=== PATIENT | male | born 1955 | race Caucasian/White ===

== ENCOUNTER 2018-05-20 14:39 | Emergency (ER) | payer OTHER ==
[~2018-05-20] VITALS: Ht 185.4 cm; Wt 108.9 kg
[~2018-05-20 14:39] MED LIST: ALBU8HFA2 INH; ALBU90OI; ALBU90OI6 INH; ALBUIS IH; BUDE6HFA INH; Bactrim Ds Tab1 EACH PO; CEPH500 PO; CHOL10002 PO; CLON1 PO; DIPATR PO; DULERA 100 MCG/13 GM; ERGO400 PO; ESOM20 PO; GUAI600T33 PO; HYDACE5325 PO; METF500 PO; Norco 5-325 Ta1 EACH PO; OMEP20ER; OMEP20ER PO; PANT20 PO; PREG50 PO; PROP10 PO; Prednisone20 MG PO; Pyridium200 MG PO; SULTRIDS PO; TIOT18 IH
[2018-05-20] MEDS ORDERED: Bactrim Ds Tab1 EACH PO (16:25)
== END 2018-05-20 16:35 | disposition home or self-care (01) ==
LOC: ER 14:39
DX: L02.214 Cutaneous abscess of groin (principal); L03.314 Cellulitis of groin; J44.9 Chronic obstructive pulmonary disease, unspecified; E11.9 Type 2 diabetes mellitus without complications; F17.200 Nicotine dependence, unspecified, uncomplicated; Z88.1 Allergy status to other antibiotic agents; Z88.8 Allergy status to other drugs, medicaments and biological substances; Z79.899 Other long term (current) drug therapy; Z79.84 Long term (current) use of oral hypoglycemic drugs
CPT/HCPCS: 10061; 99283-25

== ENCOUNTER → 2019-05-06 | Outpatient (CLI) | payer OTHER ==
[~2019-05-06] MED LIST changes: +ALBU3IS INH; -ALBUIS IH; -DULERA 100 MCG/13 GM; +DULERA 200 MCG/13 GM INH; +TAMS.4ER PO; +Zithromax250 MG PO
[2019-05-09 10:29] LABS: Adenovirus F 40/41 Not Detected (NOT DETECT); Campylobacter Sp Not Detected (NOT DETECT); Cryptosporidium Not Detected (NOT DETECT); Cyclospora Cayetanensis Not Detected (NOT DETECT); E. Coli O157 Not Detected (NOT DETECT); Entamoeba Histolytica Not Detected (NOT DETECT); Enteroaggregative E. coli-EAEC Not Detected (NOT DETECT); Enteropathogenic E. coli-EPEC Not Detected (NOT DETECT); Enterotoxigenic E. coli-ETEC Not Detected (NOT DETECT); Giardia Lamblia Not Detected (NOT DETECT); Plesiomonas Shigelloides Not Detected (NOT DETECT); Salmonella Sp Not Detected (NOT DETECT); Shiga Toxin-prod E. coli-STEC Not Detected (NOT DETECT); Shigella/Enteroin E. coli-EIEC Not Detected (NOT DETECT); Vibrio Cholerae Not Detected (NOT DETECT); Vibrio Sp Not Detected (NOT DETECT); Yersinia Enterocolitica Not Detected (NOT DETECT)
[2019-05-09 10:30] LABS: Astrovirus Not Detected (NOT DETECT); Norovirus GI/GII Not Detected (NOT DETECT); Rotavirus A Not Detected (NOT DETECT); Sapovirus Not Detected (NOT DETECT)
== END | disposition home or self-care (01) ==
LOC: LAB 07:32 → LAB SHORT 07:32
PROVIDERS: Internal Medicine Gastroenterology
DX: R19.7 Diarrhea, unspecified (principal)
CPT/HCPCS: 0097U

== ENCOUNTER 2019-05-09 04:44 | Emergency (ER) | payer OTHER ==
[~2019-05-09] VITALS: Ht 185.4 cm; Wt 111.6 kg
[~2019-05-09 04:44] MED LIST changes: -TAMS.4ER PO; -Zithromax250 MG PO
[2019-05-09] MEDS ORDERED: TAMS.4ER PO (05:04)
[2019-05-09 05:13] LABS: BASOPHILS ABSOLUTE AUTO 0.06 K/mm3 (0.00-0.23); BASOPHILS PERCENT AUTO 1 % (0-2); EOSINOPHILS ABSOLUTE AUTO 0.08 K/mm3 (0.00-0.68); EOSINOPHILS PERCENT AUTO 1 % (0-6); Hematocrit 46.6 % (37.0-53.0); Hemoglobin 15.3 g/dL (13.5-17.5); IMMATURE GRAN ABSOLUTE AUTO 0.07 K/mm3 (0.00-0.10); IMMATURE GRAN PERCENT AUTO 1 % (0-1); LYMPHOCYTES ABSOLUTE AUTO 1.42 K/mm3 (0.84-5.20); LYMPHOCYTES PERCENT AUTO 12 % (21-46); MONOCYTES ABSOLUTE AUTO 1.02 K/mm3 (0.16-1.47); MONOCYTES PERCENT AUTO 8 % (4-13); Mean Corpuscular HGB 27.9 pg (26.0-34.0); Mean Corpuscular HGB Conc 32.8 g/dL (31.5-36.5); Mean Corpuscular Volume 85 fL (80-100); Mean Platelet Volume 9.4 fL (9.1-12.4); NEUTROPHILS ABSOLUTE AUTO 9.69 K/mm3 (1.96-9.15); NEUTROPHILS PERCENT AUTO 79 % (41-73); Platelet Count 211 K/mm3 (150-400); RDW Coefficient Variation 13.6 % (11.7-14.2); RDW Standard Deviation 42.3 fL (35.1-46.3); Red Blood Cell Count 5.48 M/mm3 (4.30-5.90); White Blood Cell Count 12.34 K/mm3 (4.00-11.30)
[2019-05-09 05:33] LABS: Alanine Aminotransfer (ALT/SGP 32 U/L (12-78); Albumin, Blood 3.3 g/dL (3.4-5.0); Albumin/Globulin Ratio 0.8 (0.8-1.8); Alk Phos 74 U/L (50-136); Anion Gap 7 mmol/L (6-16); Aspartate Aminotrans (AST/SGOT 21 U/L (12-37); Bilirubin, Total 0.3 mg/dL (0.1-1.0); Blood Urea Nitrogen 12 mg/dL (8-24); Bun/Creatinine Ratio 10.3 (12.0-20.0); CO2, Blood 26 mmol/L (21-32); Chloride, Blood 108 mmol/L (98-108); Creatinine, Blood 1.17 mg/dL (0.60-1.20); Globulin, Blood 4.3 g/dL (2.2-4.0); Glomerular Filtration Rate >60 (60-); Glucose, Blood 128 mg/dL (70-99); Potassium, Blood 3.6 mmol/L (3.5-5.5); Sodium, Blood 141 mmol/L (136-145); Total Protein, Blood 7.6 g/dL (6.4-8.2)
[2019-05-09 05:48] LABS: Influenza A Negative (NEGATIVE); Influenza B Negative (NEGATIVE)
[2019-05-09] MEDS ORDERED: Zithromax250 MG PO (05:55)
== END 2019-05-09 06:18 | disposition home or self-care (01) ==
LOC: ER 04:44
PROVIDERS: Emergency Medicine
DX: J44.0 Chronic obstructive pulmonary disease with (acute) lower respiratory infection (principal); J20.9 Acute bronchitis, unspecified; J44.1 Chronic obstructive pulmonary disease with (acute) exacerbation; E11.9 Type 2 diabetes mellitus without complications; Z88.8 Allergy status to other drugs, medicaments and biological substances; Z88.1 Allergy status to other antibiotic agents; Z79.899 Other long term (current) drug therapy; Z79.84 Long term (current) use of oral hypoglycemic drugs
CPT/HCPCS: 36415; 71046; 80053; 82947; 85025; 87804; 93005; 93010; 94640; 99284-25

== ENCOUNTER 2019-05-09 18:56 | Inpatient (IN) | payer OTHER ==
[~2019-05-09] VITALS: Ht 177.8 cm; Wt 107.3 kg
[~2019-05-09 18:56] MED LIST changes: +TAMS.4ER PO; +Zithromax250 MG PO
[2019-05-09 19:38] LABS: BASOPHILS ABSOLUTE AUTO 0.06 K/mm3 (0.00-0.23); BASOPHILS PERCENT AUTO 1 % (0-2); EOSINOPHILS ABSOLUTE AUTO 0.03 K/mm3 (0.00-0.68); EOSINOPHILS PERCENT AUTO 0 % (0-6); Hematocrit 46.5 % (37.0-53.0); Hemoglobin 15.1 g/dL (13.5-17.5); IMMATURE GRAN ABSOLUTE AUTO 0.13 K/mm3 (0.00-0.10); IMMATURE GRAN PERCENT AUTO 1 % (0-1); LYMPHOCYTES ABSOLUTE AUTO 1.62 K/mm3 (0.84-5.20); LYMPHOCYTES PERCENT AUTO 12 % (21-46); MONOCYTES ABSOLUTE AUTO 0.94 K/mm3 (0.16-1.47); MONOCYTES PERCENT AUTO 7 % (4-13); Mean Corpuscular HGB 27.8 pg (26.0-34.0); Mean Corpuscular HGB Conc 32.5 g/dL (31.5-36.5); Mean Corpuscular Volume 86 fL (80-100); Mean Platelet Volume 9.9 fL (9.1-12.4); NEUTROPHILS ABSOLUTE AUTO 10.26 K/mm3 (1.96-9.15); NEUTROPHILS PERCENT AUTO 79 % (41-73); Platelet Count 234 K/mm3 (150-400); RDW Coefficient Variation 13.7 % (11.7-14.2); Red Blood Cell Count 5.43 M/mm3 (4.30-5.90); White Blood Cell Count 13.04 K/mm3 (4.00-11.30)
[2019-05-09 19:53] LABS: PCO2 Arterial 51.2 mmHg (35-45); pH Blood Arterial 7.36 (7.35-7.45)
[2019-05-09 20:06] LABS: Alanine Aminotransfer (ALT/SGP 33 U/L (12-78); Albumin, Blood 3.3 g/dL (3.4-5.0); Albumin/Globulin Ratio 0.8 (0.8-1.8); Alk Phos 69 U/L (50-136); Anion Gap 3 mmol/L (6-16); Aspartate Aminotrans (AST/SGOT 20 U/L (12-37); Bilirubin, Total 0.4 mg/dL (0.1-1.0); Blood Urea Nitrogen 13 mg/dL (8-24); Bun/Creatinine Ratio 12.5 (12.0-20.0); CO2, Blood 27 mmol/L (21-32); Calcium, Blood 8.9 mg/dL (8.5-10.1); Chloride, Blood 107 mmol/L (98-108); Creatinine, Blood 1.04 mg/dL (0.60-1.20); Globulin, Blood 4.3 g/dL (2.2-4.0); Glomerular Filtration Rate >60 (60-); Glucose, Blood 133 mg/dL (70-99); Potassium, Blood 3.9 mmol/L (3.5-5.5); Sodium, Blood 137 mmol/L (136-145); Total Protein, Blood 7.6 g/dL (6.4-8.2); Troponin I <0.015 ng/mL (0.000-0.040)
[2019-05-10 01:21] LABS: Adenovirus Not Detected (NOT DETECT); Bordetella pertussis Not Detected (NOT DETECT); Chlamydophila pneumoniae Not Detected (NOT DETECT); Coronavirus 229E Not Detected (NOT DETECT); Coronavirus HKU1 Not Detected (NOT DETECT); Coronavirus NL63 Not Detected (NOT DETECT); Coronavirus OC43 Not Detected (NOT DETECT); Human Metapneumovirus Not Detected (NOT DETECT); Human Rhinovirus/Enterovirus Not Detected (NOT DETECT); Influenza A Not Detected (NOT DETECT); Influenza A/2009-H1 Not Detected (NOT DETECT); Influenza A/H1 Not Detected (NOT DETECT); Influenza A/H3 Not Detected (NOT DETECT); Influenza B Not Detected (NOT DETECT); Mycoplasma pneumoniae Not Detected (NOT DETECT); Parainfluenza Virus 1 Not Detected (NOT DETECT); Parainfluenza Virus 2 Not Detected (NOT DETECT); Parainfluenza Virus 3 Not Detected (NOT DETECT); Parainfluenza Virus 4 Not Detected (NOT DETECT); Respiratory Syncytial Virus Detected (NOT DETECT)
--- NOTE | 2019-05-10 02:08 | NUR ---
ED RUTH AT 2240 PER SAMUEL.ASSUMED CARE . MENTATION CLEAR, ORIENTED X 3. REPORTS UNINTERESTED TO CONCERN HIMSELF ABOUT HOME MEDS . KNOWS ALL THAT . UNSURE ABOUT FLU VAC AND WILL ASK WHEN HERE. REPORTS PAIN MILD MID STERNAL ONLY WITH STRONG HARSH COUGH. REPORTS YELLOW SPUTUM AND NOT SEEN. VERY WEAK .DISCUSSED SAFETY AND BED ALARM. VOIDED QS, CONCENTRATED URINE, NPO. MILD SOB WHEN STANDS TO VOID. CONT PULSE OX. REQ 2L FOR 92%. SR/ OFF TO SLEEP AND COMFORTABLE BREATHING. FEW RATTLES NOTED AND CLEARS W/ SRTRONG COUGH. RESP PANEL + RSV AND PLACED IN DROPLET ISO . SLEEPING NO FURTHER PAIN COMPLAINT.
[2019-05-10 04:20] LABS: BASOPHILS ABSOLUTE AUTO 0.02 K/mm3 (0.00-0.23); BASOPHILS PERCENT AUTO 0 % (0-2); EOSINOPHILS PERCENT AUTO 0 % (0-6); Hematocrit 46.3 % (37.0-53.0); Hemoglobin 14.7 g/dL (13.5-17.5); IMMATURE GRAN ABSOLUTE AUTO 0.07 K/mm3 (0.00-0.10); IMMATURE GRAN PERCENT AUTO 1 % (0-1); LYMPHOCYTES ABSOLUTE AUTO 0.69 K/mm3 (0.84-5.20); LYMPHOCYTES PERCENT AUTO 7 % (21-46); MONOCYTES PERCENT AUTO 1 % (4-13); Mean Corpuscular HGB 27.7 pg (26.0-34.0); Mean Corpuscular HGB Conc 31.7 g/dL (31.5-36.5); Mean Corpuscular Volume 87 fL (80-100); Mean Platelet Volume 9.6 fL (9.1-12.4); NEUTROPHILS PERCENT AUTO 91 % (41-73); Platelet Count 194 K/mm3 (150-400); RDW Coefficient Variation 13.7 % (11.7-14.2); RDW Standard Deviation 43.9 fL (35.1-46.3); Red Blood Cell Count 5.31 M/mm3 (4.30-5.90); White Blood Cell Count 9.98 K/mm3 (4.00-11.30)
[2019-05-10 04:41] LABS: Anion Gap 7 mmol/L (6-16); Blood Urea Nitrogen 14 mg/dL (8-24); Bun/Creatinine Ratio 12.5 (12.0-20.0); CO2, Blood 28 mmol/L (21-32); Calcium, Blood 8.5 mg/dL (8.5-10.1); Chloride, Blood 106 mmol/L (98-108); Creatinine, Blood 1.12 mg/dL (0.60-1.20); Glomerular Filtration Rate >60 (60-); Glucose, Blood 163 mg/dL (70-99); Potassium, Blood 4.1 mmol/L (3.5-5.5); Sodium, Blood 141 mmol/L (136-145)
--- NOTE | 2019-05-10 06:00 | NUR ---
SHIFT SUMMARY. SLEEPING SOUNDLY . INCONTINENT OF URINE,.CHANGED. TALKS TO ON PHONE. MENTATION CLEAR. ALOT OF COUGHING. MOIST. 2L NC ALL NOC. SR.
--- NOTE | 2019-05-10 19:33 | NUR ---
SHIFT SUMMARY: PT MORE ALERT TODAY. HRR SINUS ON THE 80'S BP SYSTOLIC ON THE 150'S, NO CHEST PAIN. LUNGS COARSE, WHEEZE AND CRACKLES STILL PRESENT, RECEIVED BREATHING TX OFTNE WITH RT TODAY, BREATHING SEEMS IMPROVING BY THE END OF THE SHIFT. SATS KEPT ABOVE 90% ON 2L OF O2. NO OTHER ISSUES ENCOUNTERED. ABLE TO MAKE NEEDS KNOWN, COOPERATIVE WITH CARES. REPORT GIVEN TO ONCOMING SHIFT.
--- NOTE | 2019-05-11 06:09 | NUR ---
SHIFT SUMMARY NO ACUTE CHANGES NOTED THROUGH THE NIGHT. PT HAS BEEN ABLE TO SLEEP WITH NO PROBLEMS. PT IS ON 3 L O2 VIA NC, CONT BIOX IN PLACE, PRN BREATHING TX GIVEN PER RT, LUNGS REMAIN COARSE, DIM, W/INS/EXP WHEEZES. PT STATES HE DOES FEEL BETTER THAN HE DID ON ADMISSION. IV ABX INFUSED PER EMAR, IV SL AT THIS TIME. UPDATED ON PT STATUS THIS AM. CALL LIGHT IN REACH. [facility]
[2019-05-11 06:14] LABS: BASOPHILS ABSOLUTE AUTO 0.04 K/mm3 (0.00-0.23); BASOPHILS PERCENT AUTO 0 % (0-2); EOSINOPHILS ABSOLUTE AUTO 0.01 K/mm3 (0.00-0.68); EOSINOPHILS PERCENT AUTO 0 % (0-6); Hematocrit 45.5 % (37.0-53.0); Hemoglobin 14.7 g/dL (13.5-17.5); IMMATURE GRAN ABSOLUTE AUTO 0.25 K/mm3 (0.00-0.10); IMMATURE GRAN PERCENT AUTO 1 % (0-1); LYMPHOCYTES ABSOLUTE AUTO 1.35 K/mm3 (0.84-5.20); LYMPHOCYTES PERCENT AUTO 7 % (21-46); MONOCYTES ABSOLUTE AUTO 0.77 K/mm3 (0.16-1.47); MONOCYTES PERCENT AUTO 4 % (4-13); Mean Corpuscular HGB 28.3 pg (26.0-34.0); Mean Corpuscular HGB Conc 32.3 g/dL (31.5-36.5); Mean Corpuscular Volume 88 fL (80-100); Mean Platelet Volume 9.6 fL (9.1-12.4); NEUTROPHILS ABSOLUTE AUTO 18.15 K/mm3 (1.96-9.15); NEUTROPHILS PERCENT AUTO 88 % (41-73); Platelet Count 242 K/mm3 (150-400); RDW Coefficient Variation 13.5 % (11.7-14.2); RDW Standard Deviation 43.6 fL (35.1-46.3); Red Blood Cell Count 5.19 M/mm3 (4.30-5.90); White Blood Cell Count 20.57 K/mm3 (4.00-11.30)
[2019-05-11 06:35] LABS: Anion Gap 3 mmol/L (6-16); Blood Urea Nitrogen 23 mg/dL (8-24); Bun/Creatinine Ratio 21.1 (12.0-20.0); CO2, Blood 32 mmol/L (21-32); Calcium, Blood 8.8 mg/dL (8.5-10.1); Chloride, Blood 107 mmol/L (98-108); Creatinine, Blood 1.09 mg/dL (0.60-1.20); Glomerular Filtration Rate >60 (60-); Glucose, Blood 156 mg/dL (70-99); Potassium, Blood 4.6 mmol/L (3.5-5.5); Sodium, Blood 142 mmol/L (136-145)
[2019-05-11] MEDS ORDERED: DULERA 200 MCG/13 GM INH (07:52)
--- NOTE | 2019-05-11 18:53 | NUR ---
SHIFT SUMMARY PT IS A&OX4. ATTEMPTED TO WEAN OXYGEN OFF OF PT, HOWEVER PT WOULD DROP SAT'S INTO HIGH 80'S WHILE ON ROOM AIR. PT MAINTAINS SPO2 >90% ON 1L MAURICE, AWARE AND OKAY WITH SPO2 LEVEL. VITALS HAVE REMAINED STABLE, TELEMETRY HAS SHOWN PT TO BE IN NORMAL SINUS RHYTHM.
[2019-05-12 04:14] LABS: BASOPHILS ABSOLUTE AUTO 0.05 K/mm3 (0.00-0.23); BASOPHILS PERCENT AUTO 0 % (0-2); EOSINOPHILS PERCENT AUTO 0 % (0-6); Hematocrit 44.4 % (37.0-53.0); Hemoglobin 14.3 g/dL (13.5-17.5); IMMATURE GRAN ABSOLUTE AUTO 0.25 K/mm3 (0.00-0.10); IMMATURE GRAN PERCENT AUTO 1 % (0-1); LYMPHOCYTES ABSOLUTE AUTO 1.67 K/mm3 (0.84-5.20); LYMPHOCYTES PERCENT AUTO 9 % (21-46); MONOCYTES ABSOLUTE AUTO 1.12 K/mm3 (0.16-1.47); MONOCYTES PERCENT AUTO 6 % (4-13); Mean Corpuscular HGB 28.1 pg (26.0-34.0); Mean Corpuscular HGB Conc 32.2 g/dL (31.5-36.5); Mean Corpuscular Volume 87 fL (80-100); Mean Platelet Volume 9.8 fL (9.1-12.4); NEUTROPHILS ABSOLUTE AUTO 16.28 K/mm3 (1.96-9.15); NEUTROPHILS PERCENT AUTO 84 % (41-73); Platelet Count 227 K/mm3 (150-400); RDW Coefficient Variation 13.4 % (11.7-14.2); RDW Standard Deviation 43.3 fL (35.1-46.3); Red Blood Cell Count 5.08 M/mm3 (4.30-5.90); White Blood Cell Count 19.37 K/mm3 (4.00-11.30)
--- NOTE | 2019-05-12 04:34 | NUR ---
SHIFT SUMMARY A/O, ABLE TO MAKE NEEDS KNOWN. COOPERATIVE WITH CARE. CALLS AND ANSWERS QUESTIONS APPROPRIATELY. NO C/O PAIN/DISCOMFORT. 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 APPEARED TO REST MUCH OF SHIFT. REMAINED ON 1L NC AND PERIODICALLY ROOM AIR WITHOUT DE-SATURATION WHILE AWAKE. VSS/AFEBRILE. NO ACUTE CHANGES NOTED OVERNIGHT. BED IN LOWEST POSITION. CALL LIGHT AND BELONGINGS WITHIN REACH. WCTM. REPORT TO ONCOMING RN.
--- NOTE | 2019-05-12 12:16 | NUR ---
PLACED PT ON ROOM AIR, OXYGEN DESATURATED TO 89% CONSISTANTLY, PT DENIES SHORTNESS OF BREATH, PT PLACED BACK ON 1L O2 VIA NC, O2 SAT INCREASED TO 90%.
--- NOTE | 2019-05-12 12:32 | NUR ---
0730: LATE ENTRY: PT IS ALERT, ORIENTED X3, DENIES PAIN AT THIS TIME. PT ON O2 @1L VIA NC, WITH OXYGEN SATURTION ABOVE 90%. NO COUGH OR C/O SHORTNESS OF BREATH. LUNG SOUNDS DIMINISHED IN BASES AND RML, PT WITH MOIST COUGH. HRR, NO EDEMA NOTED. DENIES CHEST PAIN. ABDOMEN LARGE, ROUND, NON TENDER, WITH HYPOACTIVE BOWEL TONES NOTED, PT DENIES NAUSEA,VOMITING OR DIARRHEA. PT UP WITH SUPERVISED ASSIST, REMAINS IN DROPLET ISOLATION.
--- NOTE | 2019-05-12 17:36 | NUR ---
EOSS: PT STATES HE IS FEELING BETTER, OXYGEN SATURATIONS DECREASES TO 89% ON ROOM AIR WHILE SLEEPING OR WITH ACTIVITY. PT HAS MOIST COUGH, LUNG SOUNDS DIMINISHED IN BASES AND RML. HRR, NO C/O CHEST PAIN OR SHORTNESS OF BREATH. TRACE EDEMA TO BLE NOTED. ABDOMEN LARGE, ROUND, NON TENDER WITH BOWEL TONES NOTED IN ALL 4 QUADRANTS, PT IS VOIDING WITHOUT DIFFICULTY, QS. PT REMAINS IN DROPLET ISOLATION.
--- NOTE | 2019-05-12 17:46 | NUR ---
PT IS COUGHING UP LARGE AMOUNT OF THICK YELLOW SPUTUM, PT IS ABLE TO COUGH AND CLEAR HIS AIRWAY WITHOUT DIFFICULTY.
[2019-05-13 04:57] LABS: BASOPHILS ABSOLUTE AUTO 0.05 K/mm3 (0.00-0.23); BASOPHILS PERCENT AUTO 0 % (0-2); EOSINOPHILS ABSOLUTE AUTO 0.01 K/mm3 (0.00-0.68); EOSINOPHILS PERCENT AUTO 0 % (0-6); Hematocrit 43.7 % (37.0-53.0); Hemoglobin 13.9 g/dL (13.5-17.5); IMMATURE GRAN PERCENT AUTO 3 % (0-1); LYMPHOCYTES ABSOLUTE AUTO 2.66 K/mm3 (0.84-5.20); LYMPHOCYTES PERCENT AUTO 20 % (21-46); MONOCYTES ABSOLUTE AUTO 0.93 K/mm3 (0.16-1.47); MONOCYTES PERCENT AUTO 7 % (4-13); Mean Corpuscular HGB 27.9 pg (26.0-34.0); Mean Corpuscular HGB Conc 31.8 g/dL (31.5-36.5); Mean Corpuscular Volume 88 fL (80-100); Mean Platelet Volume 9.5 fL (9.1-12.4); NEUTROPHILS ABSOLUTE AUTO 9.54 K/mm3 (1.96-9.15); NEUTROPHILS PERCENT AUTO 70 % (41-73); Platelet Count 206 K/mm3 (150-400); RDW Coefficient Variation 13.4 % (11.7-14.2); RDW Standard Deviation 43.4 fL (35.1-46.3); Red Blood Cell Count 4.98 M/mm3 (4.30-5.90); White Blood Cell Count 13.59 K/mm3 (4.00-11.30)
--- NOTE | 2019-05-13 06:19 | NUR ---
SHIFT SUMMARY A/O, ABLE TO MAKE NEEDS KNOWN. COOPERATIVE WITH CARE. CALLS AND ANSWERS QUESTIONS APPROPRIATELY. VERY EAGER TO GO HOME TODAY. NO C/O PAIN/DISCOMFORT. TELEMETRY RUNNING SR BETWEEN 50'S-60'S. WEANED DOWN TO 0.5L 02 VIA NC MAINTAINING 90-93% OVERNIGHT. APPEARED TO REST MUCH OF SHIFT. NO ACUTE CHANGES NOTED. VSS/AFEBRILE. BED IN LOWEST POSITION. CALL LIGHT AND BELONGINGS WITHIN REACH. WCTM. REPORT TO ONCOMING RN.
--- NOTE | 2019-05-13 08:00 | NUR ---
pt laying in bed awake a/ox3, pleasant and cooperative with care, follows commands well, denies pain, states he feels good this am and is ready to go home, lungs are course t/o, with some wheezing, productive cough is reported of yellow sputum, sats are 90-93% on 05 liter, turned to room air, did drop to 89% briefly, Dr. Gregory in room and asked him if he would like to see if 02 is needed at home, he states he wont use it, hrr, tele in place running sr in the 60's, no edema noted, ppp+1, cap refill <3 sec, vs stable, afebrile, iv site is clear and patent, btx4, abd flat soft nontender, voids without diff, skin c/w/d, antionette hernandez, call light in reach.
[2019-05-13] MEDS ORDERED: Humibid-LA 600600 MG PO (09:47)
[2019-05-13] MEDS ORDERED: AZIT500 PO (09:48)
[2019-05-13] MEDS ORDERED: CEFP200 PO (09:48)
[2019-05-13] MEDS ORDERED: DILT120 PO (09:49)
[2019-05-13] MEDS ORDERED: Prednisone10 MG PO (09:50)
--- NOTE | 2019-05-13 11:47 | NUR ---
pt has been discharged to home, iv removed intact, went over discharge instructions with him, and his , they verbalized understanding, new medications have been called in to [facility] in [place], he has all his belongings, left via wheelchair with charge nurse in attendence.
== END 2019-05-13 11:49 | disposition home or self-care (01) | DRG 871 ==
LOC: ER 18:56 → PCU 20:50
PROVIDERS: Emergency Medicine; Nurse Practitioner Acute Care; Student in an Organized Health Care Education/Training Program; ADMIT Internal Medicine
DX: A41.89 Other specified sepsis (principal); J96.01 Acute respiratory failure with hypoxia; J96.02 Acute respiratory failure with hypercapnia; J12.1 Respiratory syncytial virus pneumonia; G92 Toxic encephalopathy; J44.1 Chronic obstructive pulmonary disease with (acute) exacerbation; J44.0 Chronic obstructive pulmonary disease with (acute) lower respiratory infection; K21.9 Gastro-esophageal reflux disease without esophagitis; Z90.79 Acquired absence of other genital organ(s); E11.9 Type 2 diabetes mellitus without complications; Z87.891 Personal history of nicotine dependence; Z79.84 Long term (current) use of oral hypoglycemic drugs
CPT/HCPCS: 0097U; 0099U; 36415; 36600; 71045; 71046; 80048; 80053; 82803; 82947; 83605; 83880; 84145; 84302; 84484; 84999; 85025; 87040; 87177; 87209; 87804; 92610; 93005; 93010; 94640; 94644; 94664; 94667; 94760; 94762; 96365; 96367; 96375; 98960; 99284-25; 99285-25; A9270-GY; C9113; J0456; J0696; J1100; J1650; J2543; J2930; J7050

== ENCOUNTER 2020-04-10 11:31 | Day surgery (SDC) | payer OTHER ==
[~2020-04-10 11:31] MED LIST changes: +ALBU2.5V5 INH; +ALBU90OI INH; +AZIT500 PO; +CEFP200 PO; -CHOL10002 PO; +CHOLESTYRAMI239.4 GM PO; +DILT120 PO; +DULERA 100 MCG/13 GM INH; +DULERA 200 MCG-13 GM INH; +Flomax0.4 MG PO; +Humibid-LA 600600 MG PO; +Inderal 20 mg T20 MG PO; +LEVFLO500 PO; +LOPE2C PO; +METOPROLOL TART25 MG PO; +Masophen325 MG PO; +PROAIR DIGIHAL90 MCG INH; +Prednisone10 MG PO; +SYMBICORT 80-10.2 GM INH; +THERA-D2000 UNIT PO; +TIOT18 INH; +VITAMIN D-32000 UNIT PO
--- NOTE | 2020-04-10 12:45 | NUR ---
04/10/20 1245 Terrie Douglas PT WITH EXP.WHEEZEZ BILATERALLY,ANESTHESIA NOTIFED.DUONEB ORDERED AND GIVEN.PT TOLERATED IT WELL.
== END 2020-04-10 14:39 | disposition home or self-care (01) ==
LOC: ORSCSDS 11:31
PROVIDERS: Internal Medicine Gastroenterology
PROC: 0DBK8ZX Excision of Ascending Colon, Via Natural or Artificial Opening Endoscopic, Diagnostic (ICD-10-PCS; principal; 2020-04-10 12:45)
PROC: 0DBL8ZX Excision of Transverse Colon, Via Natural or Artificial Opening Endoscopic, Diagnostic (ICD-10-PCS; principal; 2020-04-10 12:45)
PROC: 0DBE8ZX Excision of Large Intestine, Via Natural or Artificial Opening Endoscopic, Diagnostic (ICD-10-PCS; principal; 2020-04-10 12:45)
DX: R19.7 Diarrhea, unspecified (principal); Z86.010 Personal history of colon polyps; D12.2 Benign neoplasm of ascending colon; D12.3 Benign neoplasm of transverse colon; K57.30 Diverticulosis of large intestine without perforation or abscess without bleeding; K64.8 Other hemorrhoids; K21.9 Gastro-esophageal reflux disease without esophagitis; Z79.899 Other long term (current) drug therapy; E11.9 Type 2 diabetes mellitus without complications; E78.5 Hyperlipidemia, unspecified; J44.9 Chronic obstructive pulmonary disease, unspecified; Z87.891 Personal history of nicotine dependence; Z79.84 Long term (current) use of oral hypoglycemic drugs; I10 Essential (primary) hypertension
CPT/HCPCS: 82947; 88305; J2405; J2704; J7120

== ENCOUNTER 2020-05-24 04:50 | Emergency (ER) | payer OTHER ==
[~2020-05-24] VITALS: Ht 185.4 cm; Wt 110.2 kg
[2020-05-24 05:11] LABS: BASOPHILS ABSOLUTE AUTO 0.07 K/mm3 (0.00-0.23); BASOPHILS PERCENT AUTO 1 % (0-2); EOSINOPHILS ABSOLUTE AUTO 0.24 K/mm3 (0.00-0.68); EOSINOPHILS PERCENT AUTO 2 % (0-6); Hematocrit 45.2 % (37.0-53.0); Hemoglobin 14.7 g/dL (13.5-17.5); IMMATURE GRAN ABSOLUTE AUTO 0.17 K/mm3 (0.00-0.10); IMMATURE GRAN PERCENT AUTO 1 % (0-1); LYMPHOCYTES ABSOLUTE AUTO 2.72 K/mm3 (0.84-5.20); LYMPHOCYTES PERCENT AUTO 21 % (21-46); MONOCYTES ABSOLUTE AUTO 0.91 K/mm3 (0.16-1.47); MONOCYTES PERCENT AUTO 7 % (4-13); Mean Corpuscular HGB 27.5 pg (26.0-34.0); Mean Corpuscular HGB Conc 32.5 g/dL (31.5-36.5); Mean Corpuscular Volume 85 fL (80-100); Mean Platelet Volume 9.7 fL (9.1-12.4); NEUTROPHILS ABSOLUTE AUTO 8.74 K/mm3 (1.96-9.15); NEUTROPHILS PERCENT AUTO 68 % (41-73); Platelet Count 230 K/mm3 (150-400); RDW Coefficient Variation 13.7 % (11.7-14.2); RDW Standard Deviation 42.1 fL (35.1-46.3); Red Blood Cell Count 5.35 M/mm3 (4.30-5.90); White Blood Cell Count 12.85 K/mm3 (4.00-11.30)
[2020-05-24 05:35] LABS: Alanine Aminotransfer (ALT/SGP 27 U/L (12-78); Albumin, Blood 2.8 g/dL (3.4-5.0); Albumin/Globulin Ratio 0.7 (0.8-1.8); Alk Phos 67 U/L (50-136); Anion Gap 6 mmol/L (6-16); Aspartate Aminotrans (AST/SGOT 13 U/L (12-37); Bilirubin, Total 0.3 mg/dL (0.1-1.0); Blood Urea Nitrogen 15 mg/dL (8-24); Bun/Creatinine Ratio 13.8 (12.0-20.0); CO2, Blood 29 mmol/L (21-32); Calcium, Blood 8.6 mg/dL (8.5-10.1); Chloride, Blood 107 mmol/L (98-108); Creatinine, Blood 1.09 mg/dL (0.60-1.20); Globulin, Blood 4.3 g/dL (2.2-4.0); Glomerular Filtration Rate >60 (60-); Glucose, Blood 154 mg/dL (70-99); Magnesium, Blood 2.1 mg/dL (1.6-2.4); Potassium, Blood 3.7 mmol/L (3.5-5.5); Sodium, Blood 142 mmol/L (136-145); Total Protein, Blood 7.1 g/dL (6.4-8.2); Troponin I <0.015 ng/mL (0.000-0.040)
[2020-05-24 08:39] LABS: Source, Urine Clean Catch
[2020-05-24 08:42] LABS: Bilirubin, Urine Neg (Neg); Blood, Urine Neg (Neg); Glucose Qualitative, Urine Neg (Neg); Ketones, Urine Neg (Neg); Leukocyte Esterase, Urine 1+ (Neg); Nitrite, Urine Neg (Neg); Protein, Urine Neg (Neg); Specific Gravity, Urine 1.015 (1.003-1.022); Urobilinogen, Urine NORM (Normal)
[2020-05-24 08:47] LABS: Appearance, Urine Clear (Clear); Color, Urine Yellow (P-Yellow)
[2020-05-24 08:50] LABS: Bacteria Few /hpf; Red Blood Cells, Urine 0-2 /hpf (0-2); Squamous Epithelial Cells Few /hpf (Few); White Blood Cells, Urine 0-2 /hpf (0-5)
== END 2020-05-24 13:20 | disposition short-term general hospital (02) ==
LOC: ER 04:50
PROVIDERS: Emergency Medicine
DX: I65.02 Occlusion and stenosis of left vertebral artery (principal); J44.9 Chronic obstructive pulmonary disease, unspecified; E11.9 Type 2 diabetes mellitus without complications; Z88.1 Allergy status to other antibiotic agents; Z79.51 Long term (current) use of inhaled steroids; Z79.84 Long term (current) use of oral hypoglycemic drugs; Z79.899 Other long term (current) drug therapy; Z87.891 Personal history of nicotine dependence
CPT/HCPCS: 36415; 70450; 70496; 70498; 71045; 80053; 81001; 82947; 83605; 83735; 84484; 85025; 87040; 87086; 93005; 93010; 96374; 96375; 99285-25; A9270; J2405; J3360; Q9967

== ENCOUNTER 2020-06-08 21:24 | Emergency (ER) | payer OTHER ==
[~2020-06-08] VITALS: Ht 182.9 cm; Wt 124.7 kg
[2020-06-08 22:00] LABS: BASOPHILS ABSOLUTE AUTO 0.07 K/mm3 (0.00-0.23); BASOPHILS PERCENT AUTO 0 % (0-2); EOSINOPHILS ABSOLUTE AUTO 0.23 K/mm3 (0.00-0.68); EOSINOPHILS PERCENT AUTO 1 % (0-6); Hematocrit 50.8 % (37.0-53.0); Hemoglobin 16.5 g/dL (13.5-17.5); IMMATURE GRAN ABSOLUTE AUTO 0.07 K/mm3 (0.00-0.10); IMMATURE GRAN PERCENT AUTO 0 % (0-1); LYMPHOCYTES ABSOLUTE AUTO 3.48 K/mm3 (0.84-5.20); LYMPHOCYTES PERCENT AUTO 21 % (21-46); MONOCYTES ABSOLUTE AUTO 1.06 K/mm3 (0.16-1.47); MONOCYTES PERCENT AUTO 7 % (4-13); Mean Corpuscular HGB 27.6 pg (26.0-34.0); Mean Corpuscular HGB Conc 32.5 g/dL (31.5-36.5); Mean Corpuscular Volume 85 fL (80-100); Mean Platelet Volume 9.7 fL (9.1-12.4); NEUTROPHILS ABSOLUTE AUTO 11.52 K/mm3 (1.96-9.15); NEUTROPHILS PERCENT AUTO 70 % (41-73); Platelet Count 276 K/mm3 (150-400); RDW Coefficient Variation 13.4 % (11.7-14.2); RDW Standard Deviation 41.4 fL (35.1-46.3); Red Blood Cell Count 5.98 M/mm3 (4.30-5.90); White Blood Cell Count 16.43 K/mm3 (4.00-11.30)
[2020-06-08 22:19] LABS: Alanine Aminotransfer (ALT/SGP 37 U/L (12-78); Albumin, Blood 3.3 g/dL (3.4-5.0); Albumin/Globulin Ratio 0.7 (0.8-1.8); Alk Phos 87 U/L (50-136); Anion Gap 5 mmol/L (6-16); Aspartate Aminotrans (AST/SGOT 31 U/L (12-37); Bilirubin, Total 0.4 mg/dL (0.1-1.0); Blood Urea Nitrogen 14 mg/dL (8-24); Bun/Creatinine Ratio 15.4 (12.0-20.0); CO2, Blood 28 mmol/L (21-32); Chloride, Blood 108 mmol/L (98-108); Creatinine, Blood 0.91 mg/dL (0.60-1.20); Globulin, Blood 4.7 g/dL (2.2-4.0); Glomerular Filtration Rate >60 (60-); Glucose, Blood 143 mg/dL (70-99); Potassium, Blood 4.3 mmol/L (3.5-5.5); Sodium, Blood 141 mmol/L (136-145)
[2020-06-08] MEDS ORDERED: PANT40 PO (22:53)
[2020-06-08] MEDS ORDERED: Inderal40 MG PO (22:55)
[2020-06-08] MEDS ORDERED: PREG50 PO ×2 (22:57→22:58)
[2020-06-08] MEDS ORDERED: LYRICA50 M1 PO (22:59)
[2020-06-08] MEDS ORDERED: Lovastatin10 MG PO (22:59)
[2020-06-08] MEDS ORDERED: Aspir 8181 MG PO (23:00)
[2020-06-09 01:56] LABS: Ethanol (Alcohol), Blood, Med <3 mg/dL; Salicylate <1.7 mg/dL (2.8-20.0)
[2020-06-09 02:02] LABS: Acetaminophen, Random <2.0 ug/mL (10.0-30.0)
[2020-06-09 03:15] LABS: Source, Urine Clean Catch
[2020-06-09 03:17] LABS: Bilirubin, Urine Neg (Neg); Blood, Urine 4+ (Neg); Glucose Qualitative, Urine Neg (Neg); Ketones, Urine Neg (Neg); Leukocyte Esterase, Urine Neg (Neg); Nitrite, Urine Neg (Neg); Protein, Urine Neg (Neg); Specific Gravity, Urine 1.025 (1.003-1.022); Urobilinogen, Urine NORM (Normal)
[2020-06-09 03:28] LABS: Appearance, Urine Clear (Clear); Color, Urine Yellow (P-Yellow)
[2020-06-09 03:29] LABS: Bacteria Not Seen /hpf; Mucus Light (0-Heavy); Red Blood Cells, Urine TNTC /hpf (0-2); Squamous Epithelial Cells Not Seen /hpf (Few); White Blood Cells, Urine Not Seen /hpf (0-5)
== END 2020-06-09 05:05 | disposition short-term general hospital (02) ==
LOC: ER 21:24
PROVIDERS: Emergency Medicine
DX: I63.9 Cerebral infarction, unspecified (principal); Z79.82 Long term (current) use of aspirin; Z79.899 Other long term (current) drug therapy
CPT/HCPCS: 36415; 70450; 70496; 70498; 71045; 80053; 81001; 82140; 82947; 85025; 93005; 93010; 96361; 96374; 96375; 96376; 99285-25; A9270; G0480; J1885; J2405; J2765; J3010; J7030; Q9967

== ENCOUNTER 2020-06-29 08:42 | Emergency (ER) | payer OTHER ==
[~2020-06-29] VITALS: Ht 185.4 cm; Wt 99.8 kg
[~2020-06-29 08:42] MED LIST changes: +Aspir 8181 MG PO; +Inderal40 MG PO; +LYRICA50 M1 PO; +Lovastatin10 MG PO; +PANT40 PO
[2020-06-29] MEDS ORDERED: FAMO20 PO (08:48)
[2020-06-29] MEDS ORDERED: MECL12.5 PO (08:49)
[2020-06-29] MEDS ORDERED: METO25ER PO (08:51)
[2020-06-29] MEDS ORDERED: LISI5 PO (08:51)
[2020-06-29] MEDS ORDERED: PLAVIX75 MG PO (08:52)
[2020-06-29] MEDS ORDERED: ATORVASTATIN CA20 MG PO (08:52)
[2020-06-29 09:19] LABS: BASOPHILS ABSOLUTE AUTO 0.06 K/mm3 (0.00-0.23); BASOPHILS PERCENT AUTO 1 % (0-2); EOSINOPHILS ABSOLUTE AUTO 0.27 K/mm3 (0.00-0.68); EOSINOPHILS PERCENT AUTO 2 % (0-6); Hematocrit 45.2 % (37.0-53.0); Hemoglobin 14.9 g/dL (13.5-17.5); IMMATURE GRAN ABSOLUTE AUTO 0.06 K/mm3 (0.00-0.10); IMMATURE GRAN PERCENT AUTO 1 % (0-1); LYMPHOCYTES ABSOLUTE AUTO 2.18 K/mm3 (0.84-5.20); LYMPHOCYTES PERCENT AUTO 17 % (21-46); MONOCYTES ABSOLUTE AUTO 0.96 K/mm3 (0.16-1.47); MONOCYTES PERCENT AUTO 8 % (4-13); Mean Corpuscular HGB 27.6 pg (26.0-34.0); Mean Corpuscular Volume 84 fL (80-100); Mean Platelet Volume 9.6 fL (9.1-12.4); NEUTROPHILS PERCENT AUTO 72 % (41-73); Platelet Count 262 K/mm3 (150-400); RDW Coefficient Variation 13.7 % (11.7-14.2); RDW Standard Deviation 41.9 fL (35.1-46.3); White Blood Cell Count 12.63 K/mm3 (4.00-11.30)
[2020-06-29 09:34] LABS: Source, Urine Clean Catch
[2020-06-29 09:37] LABS: Alanine Aminotransfer (ALT/SGP 46 U/L (12-78); Albumin/Globulin Ratio 0.8 (0.8-1.8); Alk Phos 81 U/L (50-136); Anion Gap 5 mmol/L (6-16); Aspartate Aminotrans (AST/SGOT 29 U/L (12-37); Bilirubin, Total 0.6 mg/dL (0.1-1.0); Blood Urea Nitrogen 14 mg/dL (8-24); Bun/Creatinine Ratio 14.6 (12.0-20.0); CO2, Blood 30 mmol/L (21-32); Calcium, Blood 8.9 mg/dL (8.5-10.1); Chloride, Blood 108 mmol/L (98-108); Creatinine, Blood 0.96 mg/dL (0.60-1.20); Glomerular Filtration Rate >60 (60-); Glucose, Blood 119 mg/dL (70-99); Potassium, Blood 4.2 mmol/L (3.5-5.5); Sodium, Blood 143 mmol/L (136-145)
[2020-06-29 09:39] LABS: Bilirubin, Urine Neg (Neg); Blood, Urine 5+ (Neg); Glucose Qualitative, Urine Neg (Neg); Ketones, Urine 1+ (Neg); Leukocyte Esterase, Urine 2+ (Neg); Nitrite, Urine Neg (Neg); Protein, Urine 4+ (Neg); Specific Gravity, Urine 1.025 (1.003-1.022); Urobilinogen, Urine 1+ (Normal)
[2020-06-29 09:47] LABS: Appearance, Urine Bloody (Clear); Color, Urine Yellow (P-Yellow)
[2020-06-29 09:48] LABS: White Blood Cells, Urine TNTC /hpf (0-5)
[2020-06-29 09:49] LABS: Bacteria Many /hpf; Red Blood Cells, Urine TNTC /hpf (0-2); Squamous Epithelial Cells Few /hpf (Few)
[2020-06-29] MEDS ORDERED: Ativan0.5 MG PO (11:28)
[2020-06-29] MEDS ORDERED: Cefpodoxime Pr100 MG PO (11:28)
== END 2020-06-29 13:29 | disposition home or self-care (01) ==
LOC: ER 08:42
PROVIDERS: Physician Assistant
DX: N39.0 Urinary tract infection, site not specified (principal); R45.1 Restlessness and agitation; Z86.73 Personal history of transient ischemic attack (TIA), and cerebral infarction without residual deficits; Z79.899 Other long term (current) drug therapy; Z79.82 Long term (current) use of aspirin
CPT/HCPCS: 36415; 51798; 80053; 81001; 83605; 85025; 87086; 96365; 96375; 96376; 99283-25; J0690; J2060; J7030

== ENCOUNTER 2020-08-13 16:31 | Emergency (ER) | payer OTHER ==
[~2020-08-13] VITALS: Ht 182.9 cm; Wt 81.7 kg
[~2020-08-13 16:31] MED LIST changes: +ATORVASTATIN CA20 MG PO; +Ativan0.5 MG PO; +Cefpodoxime Pr100 MG PO; +FAMO20 PO; +LISI5 PO; +MECL12.5 PO; +METO25ER PO; +PLAVIX75 MG PO
== END 2020-08-13 21:10 | disposition home or self-care (01) ==
LOC: ER 16:31
DX: R45.1 Restlessness and agitation (principal); J44.9 Chronic obstructive pulmonary disease, unspecified; E11.9 Type 2 diabetes mellitus without complications; I10 Essential (primary) hypertension; K21.9 Gastro-esophageal reflux disease without esophagitis; Z87.891 Personal history of nicotine dependence; Z86.73 Personal history of transient ischemic attack (TIA), and cerebral infarction without residual deficits; Z76.0 Encounter for issue of repeat prescription; Z88.1 Allergy status to other antibiotic agents; Z88.8 Allergy status to other drugs, medicaments and biological substances; Z79.82 Long term (current) use of aspirin; Z79.02 Long term (current) use of antithrombotics/antiplatelets; Z79.51 Long term (current) use of inhaled steroids
CPT/HCPCS: 99284

== ENCOUNTER 2020-08-27 08:32 | Emergency (ER) | payer OTHER ==
[~2020-08-27] VITALS: Ht 180.3 cm; Wt 81.7 kg
== END 2020-08-27 14:36 | disposition home or self-care (01) ==
LOC: ER 08:32
DX: R45.1 Restlessness and agitation (principal); J44.9 Chronic obstructive pulmonary disease, unspecified; E11.9 Type 2 diabetes mellitus without complications; K21.9 Gastro-esophageal reflux disease without esophagitis; Z88.1 Allergy status to other antibiotic agents; Z91.09 Other allergy status, other than to drugs and biological substances; Z86.73 Personal history of transient ischemic attack (TIA), and cerebral infarction without residual deficits; Z79.51 Long term (current) use of inhaled steroids; Z79.84 Long term (current) use of oral hypoglycemic drugs; Z79.899 Other long term (current) drug therapy; Z79.02 Long term (current) use of antithrombotics/antiplatelets; Z79.82 Long term (current) use of aspirin; Z87.891 Personal history of nicotine dependence
CPT/HCPCS: 36415; 96372; 99285-25; J2060